=== PATIENT | female | born 1975 ===

== ENCOUNTER 2016-10-31 13:14 | Emergency (ER) | payer OTHER ==
--- NOTE | 2016-10-31 13:48 | UC ---
Complaint Female HPI - HPI Summary HPI Summary: pAtient has had urinary symptoms for the past few days. states the back pain has decreased, but has irritation when urinating - History Of Current Complaint Chief Complaint: UCGU Stated Complaint: UTI Time Seen by Provider: 10/31/16 13:21 Hx Obtained From: Patient Hx Last Menstrual Period: 10/19/16 ?: No Onset/Duration: Sudden Onset, Lasting Days Timing: Lasting Days Severity Initially: Mild Severity Currently: Mild Character: Burning Aggravating Factor(s): Urination Alleviating Factor(s): Position - Allergies/Home Medications Allergies/Adverse Reactions: Allergies Allergy/AdvReac Type Severity Reaction Status Date / Time Penicillins Allergy Hives Verified 10/31/16 13:20 Home Medications: Home Medications Control 1 tab PO DAILY 10/31/16 [History Confirmed 10/31/16] PMH/Surg Hx/FS Hx/Imm Hx Previously Healthy: Yes - Surgical History Surgical History: None - Family History Known Family History: Negative: Cardiac Disease, Hypertension - Social History Alcohol Use: Daily Substance Use Type: None Smoking Status (MU): Former Smoker Review of Systems Constitutional: Negative Skin: Negative Eyes: Negative ENT: Negative Respiratory: Negative Cardiovascular: Negative Gastrointestinal: Negative Genitourinary: Dysuria, Frequency Motor: Negative Neurovascular: Negative Musculoskeletal: Negative Neurological: Negative Psychological: Negative All Other Systems Reviewed And Are Negative: Yes Physical Exam Triage Information Reviewed: Yes Appearance: Well-Appearing, Well-Nourished, Pain Distress Vital Signs: Initial Vital Signs Temp 99.0 F 10/31/16 13:16 Pulse 79 10/31/16 13:16 Resp 16 10/31/16 13:16 BP 129/77 10/31/16 13:16 Pulse Ox 100 10/31/16 13:16 Eye Exam: Normal ENT Exam: Normal Dental Exam: Normal Neck exam: Normal Respiratory Exam: Normal Cardiovascular Exam: Normal Abdomen Description: Positive: Nontender, No Organomegaly, Soft, CVA Tenderness (R) - neg, CVA Tenderness (L) - neg Bowel Sounds: Positive: Present Musculoskeletal Exam: Normal Musculoskeletal: Positive: Strength Intact, ROM Intact, No Edema Neurological Exam: Normal Neurological: Positive: Alert, Muscle Tone Normal Psychological Exam: Normal Skin Exam: Normal Complaint Female Dx - Course Course Of Treatment: hx obtained, exam performed ,meds reviewed, UA pos for blood and trace leuks, prescribed CIPRO, advised patient tyo hold off and increase fluid intake untiul culture returns because her symptoms have already improved. - Differential Dx/Diagnosis Differential Diagnosis/HQI/PQRI: Ectopic, Sexually Transmitted Disease, Ureteral Stone, Urinary Tract Infection Provider Diagnoses: back pain. dysuria Discharge - Discharge Plan Condition: Stable Disposition: HOME Prescriptions: Ciprofloxacin HCl [Cipro 500 MG TAB] 500 mg PO DAILY #14 tab Patient Education Materials: Dysuria (ED) Additional Instructions: 1. increase your fluid intake 2. Start taking the antibiotics if your symptoms are not continuing to improve.
== END 2016-10-31 13:55 | disposition home or self-care (01) ==
LOC: UCEAST 13:14
DX: M54.9 Dorsalgia, unspecified (principal); R30.0 Dysuria; Z87.891 Personal history of nicotine dependence
CPT/HCPCS: 81003; 84702; 87086; 99202; G0463

== ENCOUNTER 2017-02-23 13:38 | Emergency (ER) | payer OTHER ==
--- NOTE | 2017-02-23 14:41 | UC ---
Back Pain HPI - HPI Summary HPI Summary: This is an otherwise healthy 42 yo female who presents with c/o back pain. She slipped and fell down her stairs this am at home. She landed on her back and slid down the remainder of the stairs. She did not lose consciousness or hit her head. She denies loss of bowel or bladder control. No numbness/tingling. Pain is made worse with movement of extremities. She has been ambulating. No significant limp. No c/o weakness. - History of Current Complaint Chief Complaint: UCBackPain Stated Complaint: FELL ARM/LEG/BACK INJURY Hx Last Menstrual Period: jan 30 - Allergies/Home Medications Allergies/Adverse Reactions: Allergies Allergy/AdvReac Type Severity Reaction Status Date / Time Penicillins Allergy Hives Verified 10/31/16 13:20 PMH/Surg Hx/FS Hx/Imm Hx Previously Healthy: Yes - Surgical History Surgical History: None - Family History Known Family History: Negative: Cardiac Disease, Hypertension - Social History Alcohol Use: Occasionally Substance Use Type: None Smoking Status (MU): Former Smoker Review of Systems Constitutional: Negative Skin: Negative Eyes: Negative ENT: Negative Respiratory: Negative Cardiovascular: Negative Gastrointestinal: Negative Genitourinary: Negative Motor: Decreased ROM Neurovascular: Negative Musculoskeletal: Decreased ROM Neurological: Negative Psychological: Negative Is Patient Immunocompromised?: No All Other Systems Reviewed And Are Negative: Yes Physical Exam Triage Information Reviewed: Yes Appearance: Well-Appearing Vital Signs: Initial Vital Signs Temp 98.2 F 02/23/17 14:22 Pulse 69 02/23/17 14:22 Resp 16 02/23/17 14:22 BP 109/58 02/23/17 14:22 Pulse Ox 100 02/23/17 14:22 Vital Signs Reviewed: Yes ENT Exam: Normal Neck exam: Normal Respiratory: Positive: Chest non-tender. Negative: Crackles, Rhonchi, Wheezing Cardiovascular: Positive: RRR, No Murmur Abdomen Description: Positive: Nontender, Soft Musculoskeletal: Positive: Other: - TTP at ~L1 and R sided TTP Neurological: Positive: Alert, Muscle Tone Normal, Other: - DTRs 2+ and symmetric Psychological Exam: Normal Skin: Positive: Other - contusion to mid back Diagnostics - Laboratory Diagnostic Studies Completed/Ordered: XR LS - no fx Back Pain Course/Dx - Course Course Of Treatment: This is a 42 yo female who sustained a back injury earlier today. Midline TTP, no neurologic symptoms. XRs are negative for fracture. Recommend NSAIDs and prn muscle relaxants. - Differential Dx/Diagnosis Differential Diagnosis/HQI/PQRI: Fracture, Strain, Sprain Provider Diagnoses: 1. Lumbar contusion Discharge - Discharge Plan Condition: Stable Disposition: HOME Prescriptions: Cyclobenzaprine TAB* [Flexeril 10 MG TAB*] 10 mg PO TID PRN #30 tab PRN Reason: Spasms Patient Education Materials: Contusion in Adults (ED) Referrals: Angelita Myers NP [Primary Care Provider] - If Needed Additional Instructions: Instructions: 1. Use 600 mg ibuprofen three times daily as needed for pain 2. Use Flexeril for additional spasm relief 3. Use ice this evening and heat tomorrow for pain relief
--- NOTE | 2017-02-23 15:21 | RAD ---
Indication: Pain post fall down stairs. Comparison: No relevant prior exams available on the [facility] for comparison. Technique: AP, lateral, and oblique views lumbar sacral spine. Flexion and extension views obtained. Report: Good range of motion demonstrated on flexion and extension. Negative for spondylolisthesis at any level. No cortical disruption or trabecular impaction to indicate a vertebral body fracture. Oblique views without evidence for spondylolysis. Preserved disc spaces. Unremarkable soft tissue contours. IMPRESSION: Negative exam. No traumatic injury evident.
== END 2017-02-23 15:42 | disposition home or self-care (01) ==
LOC: UCEAST 13:38
DX: S30.0XXA Contusion of lower back and pelvis, initial encounter (principal); Z88.0 Allergy status to penicillin; W10.9XXA Fall (on) (from) unspecified stairs and steps, initial encounter; Y92.9 Unspecified place or not applicable; Z87.891 Personal history of nicotine dependence
CPT/HCPCS: 72114; 99212; G0463

== ENCOUNTER 2017-11-16 18:30 | Emergency (ER) | payer OTHER ==
[2017-11-16] MEDS ORDERED: Ciprofloxacin TAB* 500 MG PO ONE (19:16)
--- NOTE | 2017-11-16 19:33 | UC ---
Complaint Female HPI - HPI Summary HPI Summary: Patient is a 42-year-old female with a history of frequent UTIs presenting to the with chief complaint of suprapubic tenderness, frequency, burning, urgency 5 days. She has been taking Pyridium without relief. She states [facility] has worked for her in the past. Denies any back pain, vaginal discharge or vaginal bleeding. Denies any history or chance of STDs. - History Of Current Complaint Chief Complaint: UCGU Stated Complaint: UTI Time Seen by Provider: 11/16/17 18:48 Hx Obtained From: Patient Hx Last Menstrual Period: 2 MONTHS AGO ?: No Onset/Duration: Sudden Onset Timing: Constant Severity Initially: Moderate Severity Currently: Moderate Pain Intensity: 3 Pain Scale Used: 0-10 Numeric Character: Burning Alleviating Factor(s): Position Associated Signs And Symptoms: Positive: Negative - Risk Factors Ectopic Risk Factor: Maternal Age ^ 30 Ovarian Torsion Risk Factor: Negative - Allergies/Home Medications Allergies/Adverse Reactions: Allergies Allergy/AdvReac Type Severity Reaction Status Date / Time Penicillins Allergy Severe Hives Verified 11/16/17 19:15 Home Medications: Home Medications Eszopiclone [Lunesta] 3 mg PO BEDTIME 11/16/17 [History Confirmed 11/16/17] PMH/Surg Hx/FS Hx/Imm Hx Previously Healthy: Yes - Surgical History Surgical History: None - Family History Known Family History: Positive: None Negative: Cardiac Disease, Hypertension - Social History Occupation: Employed Full-time Lives: With Family Alcohol Use: Occasionally Substance Use Type: None Smoking Status (MU): Former Smoker Review of Systems Constitutional: Negative Skin: Negative Respiratory: Negative Cardiovascular: Negative Genitourinary: Dysuria, Frequency, Urgency Motor: Negative Neurovascular: Negative Psychological: Negative Is Patient Immunocompromised?: No All Other Systems Reviewed And Are Negative: Yes Physical Exam Triage Information Reviewed: Yes Appearance: Well-Appearing, No Pain Distress, Well-Nourished Vital Signs: Initial Vital Signs Temp 98.4 F 11/16/17 18:49 Pulse 68 11/16/17 18:49 Resp 15 11/16/17 18:49 BP 122/80 11/16/17 18:49 Pulse Ox 97 11/16/17 18:49 Vital Signs Reviewed: Yes Eye Exam: Normal Eyes: Positive: Conjunctiva Clear Neck exam: Normal Neck: Positive: Supple, Nontender Respiratory Exam: Normal Respiratory: Positive: Chest non-tender Cardiovascular Exam: Normal Musculoskeletal: Positive: Strength Intact Skin Exam: Normal Complaint Female Dx - Course Course Of Treatment: During the course of treatment, the patient is evaluated for UTI symptoms. Urine obtained which shows 3+ leukocytes and nitrites. Trace amount of blood. I have given her Cipro 500 mg in the UC. She is given a prescription for ciprofloxacin 500 mg twice a day 7 days. She states she has enough Pyridium at this time. - Differential Dx/Diagnosis Provider Diagnoses: UTI Discharge - Sign-Out/Discharge Documenting (check all that apply): Patient Departure - Discharge Plan Condition: Stable Disposition: HOME Prescriptions: Ciprofloxacin TAB* [Cipro 500 MG TAB*] 500 mg PO BID #13 tab Patient Education Materials: Urinary Tract Infection in Women (ED) Referrals: Angelita Myers NP [Primary Care Provider] - Additional Instructions: Drink plenty of fluids Cranberry or [place] juice over the counter may help with prevention Cipro twice daily x 7 days Pyridium up to three times daily for discomfort - Billing Disposition and Condition Condition: STABLE Disposition: Home
== END 2017-11-16 19:25 | disposition home or self-care (01) ==
LOC: UCEAST 18:30
DX: N39.0 Urinary tract infection, site not specified (principal); Z88.0 Allergy status to penicillin; Z87.891 Personal history of nicotine dependence
CPT/HCPCS: 81003; 87077; 87086; 87186; 99212; A9270-GY; G0463